=== PATIENT | male | born 1950 | race Caucasian/White ===

== ENCOUNTER 2016-11-23 00:14 | Observation (INO) ==
[2016-11-23 00:41] LABS: Basophils % 0.4 %; Eosinophils # 0.1 K/mcL (0.0-0.6); Eosinophils % 1.2 %; Hematocrit 42.2 % (37.5-50.1); Hemoglobin 14.3 g/dL (12.9-16.9); Immature Granulocytes % 0.2 % (0-4); Lymphocytes # 2.4 K/mcL (0.6-4.6); Lymphocytes % 23.8 %; Mean Corpuscular HGB Conc 33.9 g/dL (31.6-35.5); Mean Corpuscular Hemoglobin 29.6 pg (28.0-33.3); Mean Corpuscular Volume 87.4 fL (83.0-100.0); Mean Platelet Volume 10.6 fL (9.4-12.4); Monocytes # 1.2 K/mcL (0.0-1.3); Monocytes % 11.7 %; Neutrophils # 6.2 K/mcL (1.6-8.9); Platelet Count 191 K/mcL (140-400); Red Blood Count 4.83 M/mcL (4.19-5.50); Red Cell Distribution Width 13.2 % (11.5-14.5); Segmented Neutrophils % 62.7 %
[2016-11-23 00:49] LABS: INR 1.1; Prothrombin Time 11.4 Seconds (9.4-12.1)
[2016-11-23 00:54] LABS: BUN/Creatinine Ratio 17 (6-26); Blood Urea Nitrogen 24 mg/dL (8-26); Calcium 9.9 mg/dL (8.6-10.8); Carbon Dioxide 25 mEq/L (19-29); Chloride 107 mEq/L (98-109); Glucose 89 mg/dL (70-99); Osmolality,Calculated 296 (280-300); Potassium 4.1 mEq/L (3.5-4.5); Sodium 141 mEq/L (136-145); eGFR For African Americans > 60 (> 60); eGFR For Non-African Americans 50 (> 60)
--- NOTE | 2016-11-23 01:04 | Emergency Department Note ---
Disposition Clinical Impression: Chest pain Qualifiers: Chest pain type: unspecified Qualified Code(s): R07.9 - Chest pain, unspecified Headache Qualifiers: Headache type: unspecified Headache chronicity pattern: acute headache Intractability: not intractable Qualified Code(s): R51 - Headache Disposition: Admitted As Inpatient Condition: Fair Referrals: Felix Hinds MD [Primary Care Provider] - Forms: ED Satisfaction Letter Time of Disposition: 02:47 Chest Pain HPI - General Chief Complaint: ED Chest Pain Stated Complaint: CP Time Seen by Provider: 11/23/16 01:03 Source: patient Mode of arrival: ambulatory Limitations: no limitations Vital Signs Reviewed: Yes Nursing Notes Reviewed: Yes - History of Present Illness HPI Narrative: Patient presents to the ED with the chief complaint of chest pain. Patient has a history of hypertension, hyperlipidemia, and is otherwise healthy. Reports that he laid down to go to sleep and was woken up with a very intense pain in the left side of his chest. He is unable to describe the character of this pain, but states he has never felt any pain like this before. Nonradiating, associated with nausea but no vomiting. No diaphoresis. Also complained of a headache that started in the back of his head. States the symptoms came on about the same time. No changes in vision. No fever. No history of DVT or PE. Not on anticoagulation. The pain has been constant for the last hour. Severity scale (1-10): 4 - Related Data Allergies Allergy/AdvReac Type Severity Reaction Status Date / Time No Known Allergies Allergy Verified 11/23/16 00:20 All systems ED: reviewed and negative except as stated. Constitutional: Denies: fever Eyes: Denies: vision change ENT ED: Denies: throat pain, dysphagia Cardiovascular: Denies: palpitations, orthopnea, syncope Respiratory: Denies: cough, dyspnea Gastrointestinal: Reports: nausea. Denies: abdominal pain, vomiting Musculoskeletal: Denies: back pain, neck pain Integumentary: Denies: rash Neurological: Reports: headache. Denies: weakness, numbness, paresthesias, confusion, abnormal gait Endocrine: Denies: fatigue Chest Pain PMH - Past Medical History Medical history: Reports: hyperlipidemia, hypertension Psychiatric history: Reports: no psych history - Social History Smoking Status: Never smoker Alcohol use: Reports: none Drug use: Reports: none Physical Exam - General Limitations: no limitations General appearance: alert, other (appears to be in pain, positive Dalton sign) - Head Head exam: atraumatic, normocephalic, normal inspection - Eye Eye exam: Present: normal appearance, PERRL, EOMI - ENT ENT exam: normal exam, normal oropharynx, mucous membranes moist - Neck Neck exam: Present: normal inspection, full ROM, trachea midline - Chest Chest inspection: Present: normal inspection, symmetric chest wall rise - Respiratory Respiratory exam: Present: normal lung sounds bilaterally - Cardiovascular Cardiovascular exam: Present: regular rate, normal rhythm, normal heart sounds - Abdominal Exam Abdominal exam: Present: soft, Non-Tender. Absent: tenderness, distention, guarding, rebound, rigidity - Extremities Exam Extremities exam: Present: normal inspection, full ROM. Absent: tenderness, pedal edema - Neurological Exam Neurological exam: Present: alert, oriented X3 - Psychiatric Psychiatric exam: Present: normal affect, normal mood - Skin Skin exam: Present: warm, dry, intact, normal color Course Course Narrative: 65 year old male presenting with acute onset, constant, concerning but no h/o CAD. Workup initiated. - Reevaluation(s) Reevaluation #1: Patient's chest pain has almost resolved. However, he is still complaining of a headache. We will CT his head. Discussed admission. He is supposed to have a follow-up appointment with his primary care physician at 10 AM today and is not sure if he will want to be admitted. We will discuss after CT returns. Also of note, repeat EKG is improved. Shows sinus rhythm, rate 61, UT interval 177, QRS 93, QTC 390, left axis deviation, no acute ischemic changes. Time: 01:43 Reevaluation #2: Head CT is normal. Will admit to the hospitalist service for chest pain rule out. Time: 02:34 Reevaluation #3: Admitted to the hospitalist service Vital Signs Temperature 97.7 F 11/23/16 00:14 Pulse Rate 70 11/23/16 00:14 Respiratory Rate 20 11/23/16 00:14 Blood Pressure 175/100 11/23/16 00:14 O2 Sat by Pulse Oximetry 98 11/23/16 00:14 Temperature 97.7 F 11/23/16 00:14 Pulse Rate 62 11/23/16 01:21 Respiratory Rate 20 11/23/16 01:21 Blood Pressure 146/97 11/23/16 01:21 O2 Sat by Pulse Oximetry 96 11/23/16 01:21 Oxygen Delivery Oxygen Delivery Room Air Chest Pain - Medical Records Medical records reviewed: Yes I reviewed the patient's medical records. - Lab Data Lab results reviewed: Yes I reviewed the patient's lab results. Result diagrams: 11/23/16 00:36 11/23/16 00:36 Lab Results 11/23/16 11/23/16 11/23/16 Range/Units 00:36 00:36 00:36 WBC 10.0 (4.3-11.1) K/mcL RBC 4.83 (4.19-5.50) M/mcL Hgb 14.3 (12.9-16.9) g/dL Hct 42.2 (37.5-50.1) % MCV 87.4 (83.0-100.0) fL MCH 29.6 (28.0-33.3) pg MCHC 33.9 (31.6-35.5) g/dL RDW 13.2 (11.5-14.5) % Plt Count 191 (140-400) K/mcL MPV 10.6 (9.4-12.4) fL Immature Gran % 0.2 (0-4) % Seg Neutrophils % 62.7 % Lymphocytes % 23.8 % Monocytes % 11.7 % Eosinophils % 1.2 % Basophils % 0.4 % Neutrophils # 6.2 (1.6-8.9) K/mcL Lymphocytes # 2.4 (0.6-4.6) K/mcL Monocytes # 1.2 (0.0-1.3) K/mcL Eosinophils # 0.1 (0.0-0.6) K/mcL Basophils # 0.0 (0.0-0.2) K/mcL PT 11.4 (9.4-12.1) Seconds INR 1.1 APTT 28.0 (26.0-36.0) Seconds Sodium 141 (136-145) mEq/L Potassium 4.1 (3.5-4.5) mEq/L Chloride 107 (98-109) mEq/L Carbon Dioxide 25 (19-29) mEq/L BUN 24 (8-26) mg/dL Creatinine 1.43 H (0.72-1.25) mg/dL Est GFR ( Amer) > 60 (> 60) Est GFR (Non-Af Amer) 50 L (> 60) BUN/Creatinine Ratio 17 (6-26) Glucose 89 (70-99) mg/dL Calculated Osmolality 296 (280-300) Calcium 9.9 (8.6-10.8) mg/dL Troponin I (0-0.03) ng/mL 11/23/16 Range/Units 00:36 WBC (4.3-11.1) K/mcL RBC (4.19-5.50) M/mcL Hgb (12.9-16.9) g/dL Hct (37.5-50.1) % MCV (83.0-100.0) fL MCH (28.0-33.3) pg MCHC (31.6-35.5) g/dL RDW (11.5-14.5) % Plt Count (140-400) K/mcL MPV (9.4-12.4) fL Immature Gran % (0-4) % Seg Neutrophils % % Lymphocytes % % Monocytes % % Eosinophils % % Basophils % % Neutrophils # (1.6-8.9) K/mcL Lymphocytes # (0.6-4.6) K/mcL Monocytes # (0.0-1.3) K/mcL Eosinophils # (0.0-0.6) K/mcL Basophils # (0.0-0.2) K/mcL PT (9.4-12.1) Seconds INR APTT (26.0-36.0) Seconds Sodium (136-145) mEq/L Potassium (3.5-4.5) mEq/L Chloride (98-109) mEq/L Carbon Dioxide (19-29) mEq/L BUN (8-26) mg/dL Creatinine (0.72-1.25) mg/dL Est GFR ( Amer) (> 60) Est GFR (Non-Af Amer) (> 60) BUN/Creatinine Ratio (6-26) Glucose (70-99) mg/dL Calculated Osmolality (280-300) Calcium (8.6-10.8) mg/dL Troponin I 0.01 (0-0.03) ng/mL - Radiology Data Radiology results reviewed: Yes I reviewed the patient's radiology results. - EKG Data EKG attestation: Yes I reviewed and interpreted this EKG. EKG results narrative: Sinus rhythm, rate 70, UT interval 156, QRS 98, QTC 400, significant left axis deviation, supraventricular premature complexes, no acute ST segment changes S.B.A.R. - S.B.A.R. Situation: Demographics, MOA Background: Presenting Complaint, Relevant PMH, Meds, & Allergies Assessment: Vital Signs, Course and respsone to treatment, Exam Concerns, Patient/Family Expectation, Pertinant Lab Results, Outstanding Labs Recommendation: Recommendation based on pending studies, treatments, or consults S.B.A.R. Report Given to: Dr. Glen Wolf Repor Time: 02:46 Attestation Statement - Attestation Attestation: I, Mathieu Garcia MD, personally performed a history and physical exam of the patient and discussed their management with the resident. I reviewed the resident's note and agree with the documented findings, medical decision making , and plan of care. 65-year-old male presents to the emergency department with a complaint that he was awakened from sleep about 11:30 PM with severe left upper chest pain. Unable to describe the pain but states it was not a sharp pain. He states he has never experienced anything like this pain before. He rated the pain a 6 out of 10. The pain lasted at least an hour. There was no radiation of the pain. No shortness of breath. Some nausea but no vomiting. No diaphoresis. No history of any heart disease but he does have a history of hypertension and hyperlipidemia. He also complains of posterior headache at the same time as the chest pain. Chest pain is now mostly resolved but still complains of headache. No blurred vision or double vision. No difficulty with speech or swallowing or balance. No focal numbness tingling or weakness. He does state that his blood pressure at that time was much higher than usual. On examination patient is a well-developed well-nourished well-appearing elderly female in no acute distress. He is alert and oriented 3. There is no cyanosis or diaphoresis. Chest is nontender to palpation. Breath sounds are clear and equal bilaterally. Heart regular rate and rhythm. Abdomen soft and nontender with normal bowel sounds. No gross focal neurological deficits. EKG shows a normal sinus rhythm with PACs, no acute ischemic changes. Chest x- ray negative. Head CT negative. Labs reviewed and unremarkable. Troponin normal. The hospitalist, Dr. Carroll, was consulted and accepted admission of the patient.
[2016-11-23] MEDS ORDERED: Nitroglycerin 0.4 MG TAB.SUBL SL PRN (01:05)
[2016-11-23] MEDS ORDERED: Aspirin 81 MG TAB.CHEW PO ONE (01:05)
[2016-11-23] MEDS ORDERED: Ondansetron 4 MG/2 ML VIAL IVP PRN (03:12)
[2016-11-23] MEDS ORDERED: Naloxone 0.4 MG/ML INJ IVP PRN (03:12)
--- NOTE | 2016-11-23 04:02 | Internal Med History&Physical ---
Date of Encounter: 11/23/16 Time of Encounter: 03:45 Assessment and Plan (1) Chest pain Current visit: Yes Status: Acute patient with no prior history of CAD comes in with chest pain concerning for ACS , he has significant risk factors such as HTN, dyslipidemia and obesity, he has no prior stress test and this is his first presentation normal EKG and unremarkable troponin levels, we will cycle troponin, telemonitor NPO post midnight check lipid panel and A1c for risk stratification for discharge home should stress test be unremarkable, he is currently chest pain free, will do aspirin and lipitor Qualifiers: Chest pain type: intercostal pain Qualified Code(s): R07.82 - Intercostal pain (2) Headache Current visit: Yes Status: Acute may be tension related, his presenting headache today was occipital in location , his head CT was unremarkable, we ill do tylenol for now Qualifiers: Headache type: tension-type Headache chronicity pattern: acute headache Intractability: not intractable Qualified Code(s): G44.209 - Tension-type headache, unspecified, not intractable (3) HTN (hypertension) Current visit: Yes Status: Chronic hx of HTN, his home readings were optimal until a few hours prior, the elevation may have been pain related, we will continue home medication(he does not recall so his will check and bring the medication later) and monitor BP Qualifiers: Hypertension type: essential hypertension Qualified Code(s): I10 - Essential (primary) hypertension (4) Dyslipidemia Current visit: Yes Status: Chronic started on lipitor, will follow lipid panel in AM (5) JOANN (acute kidney injury) Current visit: Yes Status: Acute his baseline creatinine is unknown but he comes in with an abnormal creatinine, it is unclear if this is JOANN or CKD, in any case if his creatinine improves with his repeat BP then this is JOANN, Internal Medicine - H&P: HPI Chief complaint: Chest pain Admitted From: Emergency Dept Plans for Post Hospital Care: Home History of present illness: Mr. Mckenzie is a 65 year old male with a history of well controlled HTN/ Dyslipidemia not prescribed any medication comes to the ER with chest pain. He as in his usual state of health until this [place] whilst dozing off he was awoken with chest pain, the pain was located on the left side of the chest, was pressure like in character and dull, constant in timing, non radiating, was 6/ 10 in severity. It had no aggravating or relieving factors but was associated with severe occipital headache ad a feeling of apprehension. His chest pain had no associated shortness of breath, palpitations, nausea or vomiting, lightheadedness, or diaphoresis. His checked his BP at the time of his symptoms and his BP read 168/104, a knight departure from his baseline 135/85mmHg. He came to the ER for further evaluation. Of note patient is on one BP medication but unfortunately he does not recall the name, he reports compliance with this medication. 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) Current living situation: Home - Independent, With Family Activity Level: Independent ambulation Additional social history: he is with 3 children - Family History Father Living Status: Cause of : Leukemia Hx Family Cancer: Yes (Leukemia) Hx Family Medical Disorders: Yes (Hypotension) - Additional Family History Additional family history: both parents are , father had leukemia and mother had HTN Internal Medicine - H&P: Meds Allergies No Known Allergies Allergy (Verified 11/23/16 00:20) All Systems PM: A 10-system review of systems was performed and is negative for pertinent findings except as documented above in the HPI. - Constitutional Vitals: Temp Pulse Resp BP Pulse Ox 97.7 F 62 20 146/97 96 11/23/16 00:14 11/23/16 01:21 11/23/16 03:19 11/23/16 03:19 11/23/16 01:21 PHYSICAL EXAMINATION: GENERAL: Adult male, lying flat in bed with no sign of distress, Alert, HEENT: NC/AT, EOMI, PERRLA, anicteric sclera, normal conjunctiva, supple, clear nares, moist mucous membranes, clear oropharynx, central uvula RESP: no chest wall tenderness with palpation, lungs are clear to auscultation bilaterally, good AE bilaterally, No crackles or wheeze CARDIO: Normal hearts sounds; S1 and 2, RRR with no murmurs, no JVD, no ankle edema GI: Soft, full, no tenderness, no organomegaly felt, normal bowel sounds heard MUSCULOSKELETAL: grossly normal movements bilaterally, no deformities noted, no calf tenderness EXTREMITIES: No clubbing, cyanosis or edema, NEUROLOGIC: CN 2-12 intact grossly. No motor/sensory deficit appreciated, PSYCHIATRY: AAO x 3. Mood is fair, SKIN: no skin rash or ulcers noted Internal Med - H&P Results - Labs CBC & Chem 7: 11/23/16 00:36 11/23/16 00:36 - EKG Data -: EKG Interpreted by Myself EKG shows normal: sinus rhythm - EKG Data Prior EKG available for review: yes When compared to previous EKG: there are significant changes - Diagnostic Studies Chest x-ray Status: image reviewed by me CT scan - head Status: image reviewed by me
[2016-11-23] MEDS: Acetaminophen 325 MG TABLET PO PRN (04:50)
[2016-11-23 06:45] LABS: Hemoglobin A1C 5.2 %
[2016-11-23] MEDS ORDERED: Regadenoson 0.4 MG/5 ML SYRINGE IVP ONE (06:50)
[2016-11-23 06:52] LABS: Calcium 9.5 mg/dL (8.6-10.8); Chol/HDL Ratio 4.4 (0-4.9); Phosphorous 4.5 mg/dL (2.3-4.7); Potassium 4.1 mEq/L (3.5-4.5)
[2016-11-23] MEDS ORDERED: *HR* OxyCODONE/APAP 5/325 TABLET PO PRN ×3 (08:41→09:27)
--- NOTE | 2016-11-23 10:21 | Cardiology Consult Note ---
Date of Encounter: 11/23/16 Time of Encounter: 09:00 Assessment and Plan (1) NSTEMI (non-ST elevated myocardial infarction) Current Visit: Yes Status: Acute Per cardiology: -Patient with no known cardiac history. -Admitted after being awakened by left sided chest pain and headache. CP lessened in ER by nitroglycerin. -Intial troponin negative, subsequent troponin 0.13. Cardiac rehab consult order placed. -ECG unchanged, no ischemic changes noted on ECG. -Currently chest pain free. -Echo pending. -BP currently 110s sytolic. BP hypertensive on admission. -Not on beta max due to bradycardia. ON asa and statin. -Of note, patient had negative standard stress test August 2014. -Discussed with and recommendations for LHC were given. Discussed at length with patient and family regarding LHC risk and benefits. Patient and family reluctant for LHC. Pateint and family questioning possible transfer to outside facility. Updated family that they have the right to transfer. I spent greater than 30 minutes with patient and family. At the end of conversation, patient and family agreeable to stay at [facility] and to have third serial troponin drawn. Patient and family also agreeable for echocardiogram. Patient and family state they will make further decisions pending echo and third troponin. -Further recommendations pending echo and third troponin and after discussion with patient and family. (LISS) (2) Chest pain Current Visit: Yes Status: Acute Per cardiology: -Chest pain that awoke patient from sleep. -CP relieved with nitro, -Denies fatigue or shortness of breath. -Denies excertional chest pain, however reports excertional headaches for the past 6 months. Could be anginal equivelant. -Currently chest pain free. -Troponin 0.01, 0.13. -ECG with no ischemic changes. -Further recommendations pending echo and third troponin. (LISS) (3) CKD (chronic kidney disease) Current Visit: Yes Status: Chronic Per cardiology: -Patient denies history of CKD. -Upon review of previous labs since 2002, creatinines noted to be 1.2-1.4. -Current creatinine 1.46, at baseline. -Management per primary service. -Can consider nephrology consult. (LISS) Qualifiers: Chronic kidney disease stage: stage 3 (moderate) Qualified Code(s): N18.3 - Chronic kidney disease, stage 3 (moderate) (4) Headache Current Visit: Yes Status: Acute Per cardiology: -Admits to excertional headaches for the past 6 months. -CT head negative for age. -Could possibly be anginal equivalent. -Management per primary service. (LISS) Qualifiers: Headache type: tension-type Headache chronicity pattern: acute headache Intractability: not intractable Qualified Code(s): G44.209 - Tension-type headache, unspecified, not intractable (5) HTN (hypertension) Current Visit: Yes Status: Chronic Per cardiology: -Known history of hypertension. -States was on BB, but was stopped by PCP for bradycardia. States was placed on CCB for hypertenion by PCP. -HYpertensive on admission with BP 175/100. -BPs currently controlled. -Will continue to monitor. (LISS) Qualifiers: Hypertension type: essential hypertension Qualified Code(s): I10 - Essential (primary) hypertension (6) Dyslipidemia Current Visit: Yes Status: Chronic Per cardiology: -Patient reports known history of hyperlipidemia. -Not taking any statins at home. -Cholesterol noted to be 219, LDL 143. -Started on lipitor 80mg po daily. -Will check LFTs. (LISS) Discussion w patient/family: The assessment and plan as outlined above was discussed with the patient and/or family members who expressed understanding and agreement. All questions were answered. Thank you for involving us in the care of your patient. Please call with any questions. Patient seen and examined with KATERIN Huddleston Patient discussed and reviewed with . History of Present Illness Consult date: 11/23/16 Requesting physician: Masoud Lee Consult reason: NSTEMI Chief complaint: Chest pain History of present illness: Mr. Mckeznie is a 65 year old male with a relevant past medical history of hypertension, hyperlipidemia. Patient states last night he was awoken by left sided chest pain and headache. Patient denies radiation of chest pain. Patient states chest pain was sharp and constant. Patient came to the ER and was given nitro. Patient states pain was lessened with nitro. CT head was performed for headache and was negative. Patient was admitted for further evaluation. Initial troponin was negative, however subsequent troponin was elevated. BP hypertensive on admission. Patient denies current chest pain or headache. Patient states over the last six months he has been getting headaches with excertional activities. Patient denies chest pain with excertion. Patient denies shortness of breath or increased fatigue. (LISS) Past Med Surg Social Fam HX - Past Medical History Attestation: Yes The following information was validated with the patient. Source: patient, old records reviewed, obtained from family Medical history: hyperlipidemia, hypertension Psychiatric history: no psych history - Past Surgical History Surgical History: arthroscopy (bilateral knee) - Social History Smoking Status: Never smoker Smokeless Tobacco Status: No Alcohol use: none Drug use: none - Family History Father Living Status: Cause of : Leukemia Hx Family Cancer: Yes (Leukemia) Hx Family Medical Disorders: Yes (Hypotension) Medications and Allergies Diltiazem SR (12hr) [Cardizem SR] 90 mg PO DAILY 11/23/16 [History] Gabapentin [Neurontin] 600 mg PO TID PRN 11/23/16 [History] Meloxicam [Mobic] 15 mg PO DAILY PRN 11/23/16 [History] Allergies No Known Allergies Allergy (Verified 11/23/16 00:20) All Systems Review: A 10-system review of systems was performed and is negative for pertinent findings except as documented above in the HPI. - Constitutional Constitutional: headache(s) - Cardiovascular Cardiovascular: as per HPI, chest pain at rest Physical Examination Vital Signs, Last 4 Hours Temp Pulse Resp BP Pulse Ox 11/23/16 06:39 97.5 F L 55 16 115/66 97 General: Conversant, No Apparent Distress HEENT: Atraumatic, Normocephaly, Mucus Membranes Moist Neck: No JVD, Normal carotid pulses Cardiac: Reg Rate and Rhythm, Normal S1 and S2, No Murmur Lungs: Normal Breath Sounds, No Wheeze, Rales, Rhonchi Neuro: Alert and responsive, No focal deficits noted Abdomen: Soft, Non-Tender Skin: No rashes noted on visualized skin Musculoskeletal: No Chest Wall Tenderness Extremities: No Clubbing, No Cyanosis, No Edema, Normal Pulses Results 11/23/16 00:36 11/23/16 06:13 Lab Results Impressions Chest X-Ray 11/23/16 00:21 IMPRESSION: No acute process. D/ / Lc Norris MD / Lc Norris MD Interpreting Provider: Lc Norris MD Head CT 11/23/16 01:42 IMPRESSION: No acute intracranial abnormality ; normal CT head for age. D/ / Amari Musa MD / Amari Musa MD Interpreting Provider: Amari Musa MD Active Medications Acetaminophen (Tylenol) 650 mg PO Q6HR PRN PRN Reason: Mild Pain Stop: 05/25/17 04:37 Last Admin: 11/23/16 04:50 Dose: 650 mg Aspirin (Aspirin) 81 mg PO DAILY FELICITY Stop: 05/26/17 09:01 Atorvastatin Calcium (Lipitor) 80 mg PO HS FELICITY Stop: 05/25/17 21:01 Naloxone HCl (Narcan) 0.4 mg IVP Q2MIN PRN PRN Reason: Opioid Reversal Stop: 05/25/17 03:13 Nitroglycerin (Nitroglycerin) 0.4 mg SL Q5MIN PRN PRN Reason: Chest Pain Stop: 05/25/17 01:06 Last Admin: 11/23/16 01:18 Dose: 0.4 mg Ondansetron HCl (Zofran) 4 mg IVP Q6HR PRN PRN Reason: Nausea And Vomiting Stop: 05/25/17 03:13 Oxycodone/Acetaminophen (Percocet 5/325) 1 each PO Q6HR PRN PRN Reason: Pain Stop: 05/25/17 08:42 Laboratory Tests 07/30/14 11/23/16 11/23/16 13:10 00:36 00:36 Hgb 14.3 Creatinine 1.30 H 1.43 H Troponin I Triglycerides Cholesterol LDL Cholesterol, Calc HDL Cholesterol 11/23/16 11/23/16 11/23/16 00:36 06:13 06:13 Hgb Creatinine 1.46 H Troponin I 0.01 0.13 H* Triglycerides 129 Cholesterol 219 H LDL Cholesterol, Calc 143 H HDL Cholesterol 50 - Imaging and Cardiology Chest Xray: report reviewed Echo: pending Other Results: CT head reviewed - EKG Interpretation EKG results cardiology: personally reviewed (ECG reviewed with SR.), other ( Telemetry reviewed with average HR 55, sinus bradycardia. PACs noted.) Consult Discharge Plan - Plan Referrals: Marlene Arita MD [Partnered Physician] - 12/01/16 1:30 pm
[2016-11-23] MEDS ORDERED: Verapamil 5 MG/2 ML VIAL ONE (10:34)
[2016-11-23] MEDS ORDERED: *HR* FentaNYL (PF) 100 MCG/2 ML VIAL ONE (10:34)
[2016-11-23] MEDS ORDERED: *HR* Midazolam HCl 2 MG/2 ML VIAL ONE ×2 (10:34→14:47)
[2016-11-23] MEDS ORDERED: 0.9 % Sodium Chloride 2,000 ML ONE (10:35)
[2016-11-23] MEDS ORDERED: Nitroglycerin 1,000 MCG/10 ML VIAL IV ONE (10:35)
[2016-11-23] MEDS ORDERED: Heparin 1,000 UNITS/500 mL NS 500 ML ONE (10:35)
[2016-11-23] MEDS ORDERED: *HR* Heparin 10,000 UNIT/10 ML VIAL ONE (10:35)
--- NOTE | 2016-11-23 10:47 | Pre-Sedation Evaluation ---
Pre-sedation evaluation - Pre-sedation checklist Date of procedure: 11/23/16 Procedure: [facility] Recent Vitals: Last Vital Signs Temp 97.5 F L 11/23/16 06:39 Pulse 55 11/23/16 06:39 Resp 16 11/23/16 06:39 BP 115/66 11/23/16 06:39 Pulse Ox 97 11/23/16 06:39 H&P (including ROS) documented in medical record: Yes Previous reaction to sedatives/anesthetics: No Dietary Status: NPO after Midnight Airway Assessment: Patient can open mouth completely, TMJ function normal ASA Classification *see protocol: CLASS II-Mild systemic disease Plan of Care: Pt appropriate candidate for procedure/moderate/conscious sedation , Risks/benefits of procedure/sedation discussed w/ patient/family
--- NOTE | 2016-11-23 12:22 | Electrocardiograph Report ---
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
--- NOTE | 2016-11-23 12:23 | Electrocardiograph Report ---
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
--- NOTE | 2016-11-23 12:47 | ECHO - Doppler Report ---
Echocardiogram Name: Gray Mckenzie Date of Study: 11/23/2016 Date: 1950 Ht: 73.0 in Medical Record#: [id number] Age: 65 Wt: 228.0 lb Gender: Male BSA: 2.28 Order #: [id number] Location: [facility] Room #: 3B54 Reading Physician: Federico Werner MD, [facility] Software Development Advisor: Char Kelley RDCS, RVT Ordering Physician: Tim Garza MANAGER OF RADIOLOGY Primary Physician: Felix Hinds MD Indications: Elevated Troponins Impressions: Normal LV systolic function, LVEF 55-60%. Mild left ventricular diastolic dysfunction. Normal right ventricular size and function. No significant valvular dysfunction. No evidence of pulmonary hypertension. The ascending aorta is borderline dilated, measuring 4.2 cm in diameter. Left Ventricular Wall Motion: Rest Echo Findings All wall segments showed normal motion. Findings: Study Quality * Technically adequate exam. ECG Findings * Sinus bradycardia. Left Ventricle * Normal LV systolic function, LVEF 55-60%. * Normal LV chamber size and wall thickness. * Mild left ventricular diastolic dysfunction. Right Ventricle * Normal right ventricular size and function. Left Atrium * Normal left atrial size. Right Atrium * Normal right atrial size. Aorta * The ascending aorta is borderline dilated, measuring 4.2 cm in diameter. * Normally sized aortic root. Pericardium * There is no pericardial effusion present. IVC * The IVC is not dilated. Aortic Valve * Trileaflet aortic valve. * Mildly sclerotic aortic valve leaflets. * No aortic stenosis. * Trace aortic regurgitation. Mitral Valve * Normal mitral valve structure. * No mitral stenosis. * Trace mitral regurgitation. Tricuspid Valve * Normal tricuspid valve structure. * No tricuspid stenosis. * Trace tricuspid regurgitation. * No evidence of pulmonary hypertension. Pulmonic Valve * Pulmonic valve not well visualized. * No pulmonic stenosis. * No pulmonic regurgitation. History Hypertension Hypercholesteremia Measurements: BP: 115/ 66 2D Normal Values RVIDd: 3.60 cm IVSd: 1.00 cm 0.6 - 1.0 cm LVIDd: 5.00 cm 3.7 - 5.6 cm LVPWd: .90 cm 0.6 - 1.1 cm LVIDs: 3.50 cm 1.5 - 3.6 cm AO: 4.20 cm < 4.0 cm %FS: 30.00 cm >25 % LA volume: 64 Mitral Valve Peak E:.51 m/sec Peak A:.73 m/sec E/A Ratio:0.7 Tricuspid Valve TV Regurg Peak Grad: 20.00mmHg TV Regurg Peak Zain: 2.22m/sec Updated by Federico Werner MD, [facility] on 11/23/2016 12:41:52 PM electronically signed on 11/23/2016 12:42:20 PM with status of Final Wall Motion Kim: 1=Normal, 2=Hypokinesis, 3=Akinesis, 4=Dyskinesis, 5=Aneurysmal, 6=Hyperkinetic, X=Not Visualized (Blank)=Missing
--- NOTE | 2016-11-23 14:30 | Event Note ---
Date of Encounter: 11/23/16 Time of Encounter: 13:30 - Cardiology Event Note -Third troponin resulted at 0.37. Patient and family updated on elevation of troponin level. Patient and family agreeable for [facility] at this time. Risk and benefits explained to patient and family. Patient and family state understanding and agree with plan. -Echocardiogram with LVEF 55-60%, mild left ventricular diastolic dysfunction, no significant valvular dysfunction, no evidence of pulmonary hypertension, ascending aorta is borderline dilated, measuring 4.2cm in diameter, all wall segments with normal motion. Discussed and reviewed echo results with patient and family. Discussed possible need for CT scan as outpatient to evaluate possible ascending aorta dilation. Patient and family state understanding and agree with plan. (LISS) Patient seen and examined with KATERIN Huddleston.
[2016-11-23] MEDS ORDERED: Tirofiban 12.5 MG/250ML 12.5 MG/250 ML BAG ONE (15:10)
[2016-11-23] MEDS ORDERED: *HR* Ticagrelor 90 MG TABLET ONE (15:18)
[2016-11-23] MEDS ORDERED: Tirofiban 12.5 MG/250ML 12.5 MG/250 ML BAG IVC SCH (15:30)
--- NOTE | 2016-11-23 15:47 | Invasive Diagnostic Lab Proc ---
Name: Gray Mckenzie Date of Study: 11/23/2016 Date: 1950 Ht: 72.8in Medical Record#: [id number] Age: 65 Wt: 227.08lb Gender: Male BSA: 2.27 Order #: [id number] BMI: 30.09 Physicians Procedure Physician: Kota Marlow MD, [facility] Referring MD: Felix Hinds MD Referring MD: Staff Name Position Time In Yee Daniels RN Monitor 02:35 PM Marla Singh RT (R) Scrub 02:35 PM Brooke Clark RN Financial Coordinator 02:35 PM Song Gaffney RN Nurse 03:15 PM Indications Indication Non-Stemi Procedures Performed Procedure L HRT ARTERY/VENTRICLE ANGIO PRQ CARD MAURI STENT W/ANGIO 1 VSL Pre-Procedure Checklist Pt not NPO for procedure and MD aware. Blood Pressure: 166/95 Rhythm: NSR Plan of Care Patient will tolerate the procedure without complications. Adequate level of comfort will be maintained. Hemodynamics will remain stable Patient will recover from procedure without complications. Respiratory function will be maintained. Cardiac rhythm will remain stable. Patient temperature will be maintained. Patient and/or family have verbalized understanding of the procedure. Patient Education Intravenous Access Time IV Size Location DC'd Fluid/Drip Rate Units RN 01:57 PM 20g 1 08/16" Patent On Arrival Rt Antecubital 0.9NaCl 25 ml/hr Brooke Clark RN Allergies No Known Allergies Vital Signs Time BP (mmHg) HR (bpm) O2 Sat. RR (bpm) LOC 02:47 PM / % 5 = Fully awake and oriented or at pre-proc level 02:47 PM / % 5 = Fully awake and oriented or at pre-proc level 03:02 PM / % 5 = Fully awake and oriented or at pre-proc level 02:41 PM 167 / 101 64 99 % 02:45 PM 166 / 95 64 97 % 22 02:50 PM 145 / 85 60 93 % 17 02:52 PM 139 / 86 60 96 % 21 02:55 PM 134 / 78 67 96 % 17 03:00 PM 136 / 84 65 97 % 20 03:05 PM 135 / 82 58 97 % 14 03:10 PM 131 / 85 60 98 % 17 03:15 PM 133 / 81 56 97 % 20 03:20 PM 133 / 89 120 98 % 16 Procedural Medications Time Medication Dose Units Method Given By 02:38 PM Oxygen 2 L/min nasal cannula Brooke Clark RN 02:41 PM Versed 2 mg Intravenous EduardoBrooke dhaliwal RN 02:42 PM Fentanyl 50 mcg Intravenous Brooke Clark RN 02:48 PM Versed 1 mg Intravenous Brooke Clark RN 02:53 PM Lidocaine 2% 0.5 ml Subcutaneous Kota Marlow MD, FAC 02:54 PM Heparin 4000 units Nitroglycerin 200 mcg Verapamil 2.5 mg Intraarterial Kota Marlow MD, FAC 03:07 PM Heparin 3000 units Intravenous Brooke Clark RN 03:10 PM Aggrastat Bolus: 50 ml Intravenous Brooke Clark RN 03:10 PM Aggrastat 12.5mg/250ml 18 ml Intravenous Brooke Clark RN ASA Classification: CLASS II- Mild systemic disease (i.e. well-controlled diabetes, hypertension, asthma, cigarette smoking) Melany Score Preprocedure Postprocedure Activity 2- Moves 4 extremities sustained head lift Activity 2- Moves 4 extremities sustained head lift Circulation 2- SBP +/= 20 points of pre-anesthetic level Circulation 2- SBP +/= 20 points of pre-anesthetic level Consciousness 2- Awake and alert oriented x 3 Consciousness 2- Awake and alert oriented x 3 O2 Saturation 2- Able to maintain O2 satruation of 92% on room air O2 Saturation 2- Able to maintain O2 satruation of 92% on room air Respiratory 2- Able to deep breathe and cough well Respiratory 2- Able to deep breathe and cough well Total Score 10 Total Score 10 Contrast Agent: Isovue Diagnostic Contrast: 50 ml Total Contrast: 50 ml Fluoro Dose: 427 mGy Activated Clotting Time Time Seconds to Clot 03:07 PM 208 Procedure Log Time Note Enter By 10:47 AM CathStat 02:02 PM 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 ejohnson 02:35 PM Procedure start 14:35 ejohnson 02:35 PM Yee Daniels RN Position: Monitor Time in: 14:35 ejohnson 02:35 PM Marla Singh RT (R) Position: Scrub Time in: 14:35 ejohnson 02:35 PM Brooke Clark RN Position: Financial Coordinator Time in: 14:35 ejohnson 02:35 PM Patient charges- Angio tray pack, Navilyst 3mm J, Pulse Oximetry and ACIST tubing and transducer ejohnson 02:35 PM Case Delayed No ejohnson 02:39 PM Time: 14:38 Oxygen on at 2 L/min per nasal cannula by Brooke Clark RN ejohnson 02:40 PM Vitals capture started with the following parameters, Patient=Adult, Interval=5 min, Initial Cmqfyfsm=011 mmHg, Deflation Rate=5 mmHg, Cuff placed on Left Arm 02:41 PM HR=64 bpm, GABN=658/101 mmhg, SpO2=99.0 % 02:41 PM Recorded ECG: HR=63 Condition=Condition 1 02:42 PM Time: 14:41 Versed 2 mg Intravenous Given by Brooke Clark RN ejohnslexy 02:42 PM Time: 14:42 Fentanyl 50 mcg Intravenous Given by Brooke Clark RN ejohnson 02:42 PM Family updated that procedure was beginning ejohnson 02:45 PM Recorded ECG: HR=72 Condition=Condition 1 02:45 PM HR=64 bpm, ZWIT=771/95 mmhg, SpO2=97 %, Resp=22 B/min 02:47 PM Time: 14:47 Patient comfortable and pain free: Yes ejohnson 02:47 PM Time: 14:47LOC: 5 = Fully awake and oriented or at pre-proc level ejohnson 02:48 PM Time: 14:48 Versed 1 mg Intravenous Given by Brooke Clark RN ejohnson 02:49 PM Pressure channel 1 zeroed. 02:50 PM HR=60 bpm, PMVR=810/85 mmhg, SpO2=93.0 %, Resp=17 B/min, Comment=SR 02:52 PM NIBP STAT measurement started. 02:52 PM HR=60 bpm, NMNT=869/86 mmhg, SpO2=96.0 %, Resp=21 B/min, Comment=SR 02:52 PM Time out performed according to hospital policy ejohnson 02:53 PM Time: 14:53 0.5 ml Lidocaine 2% to right radial Subcutaneous Given by Kota Marlow MD, [facility] ejohnson 02:54 PM Access obtained by percutaneous puncture. 5Fr 10cm Terumo [place] sheath placed in right Radial artery. [id number] ejohnson 02:54 PM Time: 14:54 Patient given 4,000 units Heparin, 200 mcg Nitroglycerin, and 2.5 mg Verapamil Intraarterial by Kota Marlow MD, FACC ejohnson 02:54 PM 5Fr FR 4 catheter inserted over the wire DNC ejohnson 02:55 PM HR=67 bpm, ERZE=291/78 mmhg, SpO2=96.0 %, Resp=17 B/min, Comment=SR 02:56 PM Catheter removed ejohnson 02:56 PM 5Fr FL 3.5 catheter inserted over the wire DNC ejohnson 02:57 PM Recorded Pressure: Ao, HR=63, Condition=Condition 1 (Aorta) Ao 104/78/91 02:58 PM LCA angiography performed in multiple views. ejohnson 02:58 PM Catheter removed ejohnson 02:59 PM 5Fr AR1 catheter inserted over the wire [id number] ejohnson 03:00 PM Lesion found in Proximal LAD. Pre Stenosis: 40 Pre JOSE A Flow: 3: Complete and Brisk Flow/Perfusion ejohnson 03:00 PM Lesion found in Distal LAD. Pre Stenosis: 99 Pre JOSE A Flow: 3 ejohnson 03:00 PM Proximal Left Anterior Descending Coronary Artery with 40% stenosis. ejohnson 03:00 PM HR=65 bpm, QGYP=884/84 mmhg, SpO2=97.0 %, Resp=20 B/min, Comment=SR 03:00 PM Recorded Pressure: Ao, HR=66, Condition=Condition 1 (Aorta) Ao 103/80/92 03:01 PM Mid/Distal Left Anterior Descending Coronary Artery and diagonal branches with 99% stenosis. ejohnson 03:02 PM Lesion found in 1st Marginal. Pre Stenosis: 60 Pre JOSE A Flow: 3: Complete and Brisk Flow/Perfusion ejohnson 03:02 PM Lesion found in Proximal Circumflex. Pre Stenosis: 40 Pre JOSE A Flow: 3: Complete and Brisk Flow/Perfusion ejohnson 03:02 PM Time: 14:47 Patient comfortable and pain free: Yes ejohnson 03:02 PM Time: 14:47LOC: 5 = Fully awake and oriented or at pre-proc level ejohnson 03:02 PM Catheter removed ejohnson 03:02 PM 5Fr Pigtail catheter inserted over the wire DN ejohnson 03:03 PM Circumflex, Obtuse Marginal, Left Posterior Descending, and Left Posterolateral Coronary Arteries with 60 % stenosis. ejohnson 03:03 PM Lesion found in Proximal RCA. Pre Stenosis: 85 Pre JOSE A Flow: 3: Complete and Brisk Flow/Perfusion ejohnson 03:03 PM Catheter selectively placed in left ventricle ejohnson 03:03 PM Pressure channel 1 zeroed. 03:04 PM Recorded Pressure: LV, HR=68, Condition=Condition 1 (Left Ventricle) LV 119/8/15 03:04 PM Right Coronary, Right Posterior Descending Arteries with Right Posterolateral and Acute Marginal branches with 85 % stenosis. ejohnson 03:05 PM Lesion found in LMCA. Pre Stenosis: 20 Pre JOSE A Flow: 3: Complete and Brisk Flow/Perfusion ejohnson 03:05 PM HR=58 bpm, VNOJ=589/82 mmhg, SpO2=97.0 %, Resp=14 B/min, Comment=SR 03:05 PM Catheter removed ejohnson 03:06 PM 6Fr AR1 Runway guide catheter was used to cannulate the PCI vessel successfully. reused? No ejohnson 03:06 PM Inflation device was opened. ejohnson 03:07 PM Recorded Pressure: Ao, HR=61, Condition=Condition 1 (Aorta) Ao 133/89/109 03:07 PM At 15:07 the ACT was 208 seconds. ejohnson 03:07 PM Time: 15:07 Heparin 3000 units Intravenous Given by Brooke Clark RN ejohnson 03:08 PM .014 PT Graphix 180cm guide wire across target lesion- successful. reused? No ejohnson 03:09 PM 3.0 mm x 12 mm Emerge Monorail balloon across target lesion- successful. reused? No ejohnson 03:10 PM Balloon inflated @ 14 ajay for 22 seconds ejohnson 03:10 PM HR=60 bpm, EYIF=516/85 mmhg, SpO2=98.0 %, Resp=17 B/min, Comment=SR 03:10 PM Time: 15:10 Aggrastat Bolus: 50 ml Intravenous Given by [place], Brooke RN Lennon pump ejohnson 03:11 PM Time: 15:10 Aggrastat 12.5mg/250ml 18 ml Intravenous Given by Brooke Clark RN Lennon pump ejohnson 03:11 PM Balloon catheter removed intact. ejohnson 03:11 PM 4.0mm x 16mm Synergy drug-eluting stent across target lesion- successful Lot #[id number] ejohnson 03:13 PM Stent deployed @ 16 jaay for 20 seconds ejohnson 03:14 PM Stent delivery system removed intact. ejohnson 03:15 PM 4.0 mm x 12mm NC Emerge balloon across target lesion- successful. reused? No ejohnson 03:15 PM HR=56 bpm, EIHW=859/81 mmhg, SpO2=97.0 %, Resp=20 B/min, Comment=SR 03:16 PM Balloon inflated @ 20 ajay for 11 seconds ejohnson 03:16 PM Balloon inflated @ 20 ajay for 9 seconds ejohnson 03:17 PM Balloon catheter removed intact. ejohnson 03:17 PM Time: 15:02 Patient comfortable and pain free: Yes ejohnson 03:17 PM Time: 15:02LOC: 5 = Fully awake and oriented or at pre-proc level ejohnson 03:18 PM Guide wire removed intact. ejohnson 03:18 PM Guide catheter removed intact. ejohnson 03:19 PM Procedure completed at 15:19 ejohnson 03:19 PM Sign out completed: Radiation Dose 427 mGy Fluoro Time: 5.6 Isovue 370 - 200ml contrast 50 ml given by Kota Marlow MD, FACC. Complications: NoneCardiac Rehab Consult needed: YesConfirmed administered medications: Yes ejohnson 03:19 PM Isovue 370 - 200ml,1 Bottle(s) used. ejohnson 03:19 PM Arterial sheath pulled, Vasc Band closure device used and was Successful S/N. ejohnson 03:20 PM 9 ml air in Vasc Band. ejohnson 03:20 PM Post ECG Sinus Bradycardia ejohnson 03:20 PM Post Blood Pressure 133/81 ejohnson 03:20 PM 15:20 Post Pulses Rt Radial 1+ ejohnson 03:20 PM Information taught Cardiac Cath, PCI, and Vasc Band ejohnson 03:20 PM CJ=657 bpm, SMWD=662/89 mmhg, SpO2=98.0 %, Resp=16 B/min, Comment=SR 03:20 PM Education needs Plan of Care and Responsibilities of Patient in Care ejohnson 03:20 PM Learning barriers :None ejohnson 03:20 PM Education Methods Verbal ejohnson 03:20 PM Education evaluation Able to repeat information ejohnson 03:20 PM Site status No bleeding/hematoma - Rt Wrist as reported by Marla Singh RT (R) at 15:20 ejohnson 03:21 PM Plavix, Effient or Brilinta given Yes ejohnson 03:21 PM Family placed in consult room. ejohnson 03:22 PM Coronary Dominance: right ejohnson 03:22 PM Lesion found in Right PDA. Pre Stenosis: 15 Pre JOSE A Flow: 3: Complete and Brisk Flow/Perfusion ejohnson 03:27 PM Report given to Blade BOJORQUEZ Pt taken to 3A Room #54. 15:27 ejohnson 03:32 PM Time: 15:17 Patient comfortable and pain free: Yes ejohnson 03:36 PM Patient out of room: 15:36 ejohnson Complications Complication None Hemodynamics Pressures Site Systolic/A Wave Diastolic/V Wave Mean AO 104 78 91 AO 103 80 92 LV 119 8 15 AO 133 89 109 LV 119 8 15 Post Procedure Information Blood Pressure: 133/81 mmHg Rhythm: Sinus Bradycardia Post procedural instructions were given Closure Device Time Device Success/Fail 11/23/2016 3:19:00 PM Mechanical Compression Successful Site Checks Time Location Status Staff Sheath In? Note 03:20 PM Rt Wrist No bleeding/hematoma Marla Singh RT (R) Pulses Time Site Pre-Procedure Post-Procedure Note 11/23/2016 2:13:00 PM Bilateral DP 1+ 11/23/2016 2:14:00 PM Bilateral PT 2+ 3:20:00 PM Rt Radial 1+ Updated by Yee Daniels RN on 11/23/2016 3:41:01 PM Yee Daniels RN electronically signed on 11/23/2016 3:41:27 PM with status of Final
--- NOTE | 2016-11-23 20:02 | Internal Med Progress Note ---
Date of Encounter: 11/23/16 Time of Encounter: 10:00 - Assessment and plan (1) Headache Current Visit: Yes Status: Acute Assessment and plan: We will give symptomatic treatment Qualifiers: Headache type: tension-type Headache chronicity pattern: acute headache Intractability: not intractable Qualified Code(s): G44.209 - Tension-type headache, unspecified, not intractable (2) HTN (hypertension) Current Visit: Yes Status: Chronic Assessment and plan: Continue home medications Qualifiers: Hypertension type: essential hypertension Qualified Code(s): I10 - Essential (primary) hypertension (3) Dyslipidemia Current Visit: Yes Status: Chronic Assessment and plan: Place patient on high intensity statin therapy. (4) NSTEMI (non-ST elevated myocardial infarction) Current Visit: Yes Status: Acute Assessment and plan: Cardiology consultation appreciated. The patient had catheterization this afternoon (5) CKD (chronic kidney disease) Current Visit: Yes Status: Chronic Assessment and plan: Continue closely monitor renal function. Low rate IVF tonight. Qualifiers: Chronic kidney disease stage: stage 3 (moderate) Qualified Code(s): N18.3 - Chronic kidney disease, stage 3 (moderate) - Time Spent With Patient 25 - 35 minutes - Subjective Interval history: Patient is a 65-year-old male admitted for chest pain. Past medical history is significant for hypertension and hyperlipidemia. Patient was seen and examined. His chest pain has improved with the last saw him. Complaining of headache. Vitals are stable. Patient had elevated troponin with onset of chest pain, consider NSTEMI, cardio consult was called and the patient has catheterization in the afternoon. - Constitutional Vitals: Temp Pulse Resp BP Pulse Ox 97.5 F L 72 15 138/90 96 11/23/16 19:10 11/23/16 19:10 11/23/16 19:10 11/23/16 19:10 11/23/16 19:10 General appearance: Present: mild distress, A&O X 3, answers questions appropriately - Head Head exam: Present: atraumatic, normocephalic - Eye Eye exam: Present: PERRL, conjuntiva pink, sclera anicteric Pupils: Present: PERRL - Neck Neck exam general surgery: Present: supple, trachea midline. Absent: lymphadenopathy - Respiratory Respiratory exam: Present: CTAB. Absent: accessory muscle use, rales, rhonchi, wheezes - Cardiovascular Cardiovascular exam: Present: RRR, +S1, +S2. Absent: diastolic murmur, gallop, rubs, systolic murmur - GI/Abdominal GI/Abdominal exam: Present: normal bowel sounds, soft, no peritoneal signs. Absent: distended, tenderness - Extremities Exam Extremities exam: Present: warm, radial pulses palpable and symetrical. Absent : calf tenderness, cyanotic, pedal edema - Neurological Exam Neurological exam: Present: CN II-XII intact, oriented X3, no focal deficits. Absent: pronater drift, facial droop, speech deficit - Skin Skin exam: Present: dry, intact Internal Medicine: Result - Labs CBC & Chem 7: 11/23/16 00:36 11/23/16 06:13 Labs: BMP 11/23/16 06:13 Sodium 138 Potassium 4.1 Chloride 107 Carbon Dioxide 20 BUN 25 Creatinine 1.46 H Glucose 93 Calcium 9.5 Cardiac Enzymes 11/23/16 11/23/16 Range/Units 06:13 12:05 Troponin I 0.13 H* 0.37 H* (0-0.03) ng/mL - ABG Interpretation ABG results: PT/INR, D-dimer PT 11.4 Seconds (9.4-12.1) 11/23/16 00:36 Consult Discharge Plan - Plan Referrals: Marlene Arita MD [Partnered Physician] - 12/01/16 1:30 pm
[2016-11-23] MEDS ORDERED: 0.9 % Sodium Chloride 1,000 ML IVC SCH (20:15)
[2016-11-23] MEDS: *HR* Ticagrelor 90 MG TABLET PO SCH (20:38)
[2016-11-24 05:49] LABS: Basophils % 0.4 %; Eosinophils # 0.2 K/mcL (0.0-0.6); Eosinophils % 2.8 %; Hemoglobin 13.1 g/dL (12.9-16.9); Immature Granulocytes % 0.4 % (0-4); Lymphocytes # 1.9 K/mcL (0.6-4.6); Lymphocytes % 23.7 %; Mean Corpuscular HGB Conc 34.5 g/dL (31.6-35.5); Mean Corpuscular Hemoglobin 30.2 pg (28.0-33.3); Mean Corpuscular Volume 87.6 fL (83.0-100.0); Mean Platelet Volume 11.2 fL (9.4-12.4); Monocytes # 0.8 K/mcL (0.0-1.3); Monocytes % 9.2 %; Neutrophils # 5.2 K/mcL (1.6-8.9); Platelet Count 173 K/mcL (140-400); Red Blood Count 4.34 M/mcL (4.19-5.50); Red Cell Distribution Width 13.2 % (11.5-14.5); Segmented Neutrophils % 63.5 %
[2016-11-24 06:03] LABS: BUN/Creatinine Ratio 16 (6-26); Blood Urea Nitrogen 20 mg/dL (8-26); Carbon Dioxide 25 mEq/L (19-29); Chloride 105 mEq/L (98-109); Glucose 88 mg/dL (70-99); Osmolality,Calculated 288 (280-300); Potassium 4.5 mEq/L (3.5-4.5); Sodium 138 mEq/L (136-145); eGFR For African Americans > 60 (> 60); eGFR For Non-African Americans 57 (> 60)
[2016-11-24 06:56] VITALS: BP 129/84
[2016-11-24] MEDS: *HR* Ticagrelor 90 MG TABLET PO SCH (07:53)
[2016-11-24] MEDS: Acetaminophen 325 MG TABLET PO PRN (07:53)
[2016-11-24] MEDS ORDERED: Aspirin 81 MG TAB.CHEW PO SCH (09:00)
--- NOTE | 2016-11-24 09:47 | Cardiology Progress Note ---
Date of Encounter: 11/24/16 Time of Encounter: 09:00 Assessment and Plan (1) NSTEMI (non-ST elevated myocardial infarction) Current Visit: Yes Status: Acute Per cardiology: -Patient with no known cardiac history. -Admitted after being awakened by left sided chest pain and headache. CP lessened in ER by nitroglycerin. -Intial troponin negative, subsequent troponins 0.13, 0.37. Cardiac rehab consult order placed. -[facility] 11/23/16 with preliminary report reviewed with 20% left main, 40% proximal LAD, 99% distal LAD, 40% proximal circumflex, 60% OM1, 85% proximal RCA. 1 drug eluding stent was placed in proximal RCA. Recommendations for medical management for remaining lesions. -Currently chest pain free. -On asa, brilinta, and statin. Education given to patient regarding dual anti- platelet therapy for at least one year un-interrupted. Patient and family state understanding. -Right radial access site without ecchymosis or hematoma. Access site education given to patient and family. Patient and family state understanding. -AVerage HR previous 12 hours noted to be 63. -Echocardiogram 11/23/16 with LVEF 55-60%, mild left ventricular diastolic dysfunction, no significant valvular dysfunction, ascending aorta borderline dilated measuring 4.2cm, all wall segments with normal motion. Patient and family aware of possible borderline dilated aorta. Can consider CT scan in outpateint setting. Patient and family state understanding and agree with plan. -Will start low dose beta max for CAD. Recommend close follow up in outpatient setting. -Cardiology will sign off and will follow up in outpatient setting. Follow up set. (LISS) (2) Chest pain Current Visit: Yes Status: Resolved Per cardiology: -Currently chest pain free. -[facility] with 1 MAURI proximal RCA. -Will continue to monitor in outpatient setting. (LISS) (3) CKD (chronic kidney disease) Current Visit: Yes Status: Chronic Per cardiology: -Patient denies history of CKD. -Upon review of previous labs since 2002, creatinines noted to be 1.2-1.4. -Current creatinine 1.26, at baseline. Creatinine yesterday 1.46. -Management per primary service. -Can consider nephrology consult. (LISS) Qualifiers: Chronic kidney disease stage: stage 3 (moderate) Qualified Code(s): N18.3 - Chronic kidney disease, stage 3 (moderate) (4) Headache Current Visit: Yes Status: Acute Per cardiology: -Admits to excertional headaches for the past 6 months. -CT head negative for age. -Could possibly be anginal equivalent. -Patient states mild headache this morning. -Management per primary service. (LISS) Qualifiers: Headache type: tension-type Headache chronicity pattern: acute headache Intractability: not intractable Qualified Code(s): G44.209 - Tension-type headache, unspecified, not intractable (5) HTN (hypertension) Current Visit: Yes Status: Chronic Per cardiology: -Known history of hypertension. -States was on BB, but was stopped by PCP for bradycardia. States was placed on CCB for hypertenion by PCP. -HYpertensive on admission with BP 175/100. -BPs currently controlled. -Will start low dose beta max, average HR previous 12 hours noted to be 63. (LISS) Qualifiers: Hypertension type: essential hypertension Qualified Code(s): I10 - Essential (primary) hypertension (6) Dyslipidemia Current Visit: Yes Status: Chronic Per cardiology: -Patient reports known history of hyperlipidemia. -Not taking any statins at home. -Cholesterol noted to be 219, LDL 143. -Started on lipitor 80mg po daily. -Will continue to monitor in outpatient setting. (LISS) Discussion w patient/family: The assessment and plan as outlined above was discussed with the patient and/or family members who expressed understanding and agreement. All questions were answered. Thank you for involving us in the care of your patient. Please call with any questions. Patient seen and examined with KATERIN Huddleston Patient discussed and reviewed with . Subjective Principal diagnosis: chest pain/headache Interval history: , was admitted to [facility] with complaints of headache and left sided chest pain. Troponin was noted to be elevated and patient underwent LHC yesterday. Patient one drug eluding stent placed to proximal RCA. Patient is now on dual antiplatelet therapy. Patient denies chest pain. Patient admits to mild headache now. Denies pain/issues with right radial access site. (LISS) Objective Vital Signs, Last 4 Hours Temp Pulse Resp BP Pulse Ox 11/24/16 06:53 97.7 F 64 16 129/84 97 General: Conversant, No Apparent Distress HEENT: Atraumatic, Normocephaly, Mucus Membranes Moist Neck: No JVD, Normal carotid pulses Cardiac: Reg Rate and Rhythm, Normal S1 and S2, No Murmur Lungs: Normal Breath Sounds, No Wheeze, Rales, Rhonchi Neuro: Alert and responsive, No focal deficits noted Abdomen: Soft, Non-Tender Skin: No rashes noted on visualized skin Musculoskeletal: No Chest Wall Tenderness Extremities: No Clubbing, No Cyanosis, No Edema, Normal Pulses Results 11/24/16 04:58 11/24/16 04:58 Lab Results Active Medications Acetaminophen (Tylenol) 650 mg PO Q6HR PRN PRN Reason: Mild Pain Stop: 05/25/17 04:37 Last Admin: 11/24/16 07:53 Dose: 650 mg Aspirin (Aspirin) 81 mg PO DAILY [facility] Stop: 05/26/17 09:01 Last Admin: 11/24/16 07:53 Dose: 81 mg Atorvastatin Calcium (Lipitor) 80 mg PO HS [facility] Stop: 05/25/17 21:01 Last Admin: 11/23/16 20:39 Dose: 80 mg Sodium Chloride (0.9 % Sodium Chloride) 1,000 mls @ 60 mls/hr IVC .[id number] [facility] Stop: 05/25/17 20:16 Last Admin: 11/23/16 20:43 Dose: 60 mls/hr Naloxone HCl (Narcan) 0.4 mg IVP Q2MIN PRN PRN Reason: Opioid Reversal Stop: 05/25/17 03:13 Nitroglycerin (Nitroglycerin) 0.4 mg SL Q5MIN PRN PRN Reason: Chest Pain Stop: 05/25/17 01:06 Last Admin: 11/23/16 01:18 Dose: 0.4 mg Ondansetron HCl (Zofran) 4 mg IVP Q6HR PRN PRN Reason: Nausea And Vomiting Stop: 05/25/17 03:13 Oxycodone/Acetaminophen (Percocet 5/325) 1 each PO Q6HR PRN PRN Reason: Pain Stop: 05/25/17 08:42 Ticagrelor (Brilinta) 90 mg PO BID [facility] Stop: 05/25/17 21:01 Last Admin: 11/24/16 07:53 Dose: 90 mg Laboratory Tests 11/23/16 11/23/16 11/23/16 00:36 00:36 06:13 Hgb Creatinine 1.43 H 1.46 H Troponin I 0.01 Triglycerides 129 Cholesterol 219 H LDL Cholesterol, Calc 143 H HDL Cholesterol 50 11/23/16 11/23/16 11/24/16 06:13 12:05 04:58 Hgb 13.1 Creatinine Troponin I 0.13 H* 0.37 H* Triglycerides Cholesterol LDL Cholesterol, Calc HDL Cholesterol 11/24/16 04:58 Hgb Creatinine 1.26 H Troponin I Triglycerides Cholesterol LDL Cholesterol, Calc HDL Cholesterol - Imaging and Cardiology Chest Xray: report reviewed Echo: report reviewed Cardiac cath: report reviewed - EKG Interpretation EKG results cardiology: other (Telemetry reviewed with average HR 63. PVCs and PACs noted.) Consult Discharge Plan - Plan Referrals: Marlene Arita MD [Partnered Physician] - 12/01/16 1:30 pm
--- NOTE | 2016-11-24 11:31 | Discharge Summary ---
Date of Encounter: 11/24/16 Time of Encounter: 10:00 - Discharge Diagnosis (1) NSTEMI (non-ST elevated myocardial infarction) Priority: Primary Status: Acute (2) Headache Priority: Primary Status: Acute Qualifiers: Headache type: tension-type Headache chronicity pattern: acute headache Intractability: not intractable Qualified Code(s): G44.209 - Tension-type headache, unspecified, not intractable (3) HTN (hypertension) Priority: Secondary Status: Chronic Qualifiers: Hypertension type: essential hypertension Qualified Code(s): I10 - Essential (primary) hypertension (4) Dyslipidemia Priority: Secondary Status: Chronic (5) CKD (chronic kidney disease) Priority: Secondary Status: Chronic Qualifiers: Chronic kidney disease stage: stage 3 (moderate) Qualified Code(s): N18.3 - Chronic kidney disease, stage 3 (moderate) - Discharge Medications Prescriptions: Acetaminophen [Tylenol] 650 mg PO Q6HR PRN #30 tablet PRN Reason: Mild Pain Aspirin 81 mg PO DAILY #30 tab.chew Atorvastatin [Lipitor] 80 mg PO HS #30 tablet Metoprolol [Lopressor] 12.5 mg PO BID #30 tablet Ticagrelor [Brilinta] 90 mg PO BID #60 tablet Home Medications: Gabapentin [Neurontin] 600 mg PO TID PRN 11/23/16 [History] Acetaminophen [Tylenol] 650 mg PO Q6HR PRN #30 tablet 11/24/16 [Rx] Aspirin 81 mg PO DAILY #30 tab.chew 11/24/16 [Rx] Atorvastatin [Lipitor] 80 mg PO HS #30 tablet 11/24/16 [Rx] Metoprolol [Lopressor] 12.5 mg PO BID #30 tablet 11/24/16 [Rx] Ticagrelor [Brilinta] 90 mg PO BID #60 tablet 11/24/16 [Rx] Allergies/Adverse Reactions: Allergies No Known Allergies Allergy (Verified 11/23/16 00:20) Date of admission: 11/24/16 10:06 Primary care physician: Felix Hinds MD Discharging clinician: Masoud Lee Anticipated date of discharge: 11/24/16 - Patient Status Disposition: Home, Self-Care Condition: Good Functional capacity at discharge: independent ambulation Overall status at discharge: patient is back to baseline - Discharge Instructions Follow Up With: Kota Marlow MD [Partnered Physician] - 12/01/16 8:00 am Marlene Arita MD [Partnered Physician] - 12/01/16 1:30 pm - Diet and Activity Activity: increase activity as tolerated Diet: low fat, low cholesterol, low salt diet Interval History: Mr. Mckenzie is a 65 year old male with a history of well controlled HTN/ Dyslipidemia not prescribed any medication comes to the ER with chest pain. He as in his usual state of health until this [place] whilst dozing off he was awoken with chest pain, the pain was located on the left side of the chest, was pressure like in character and dull, constant in timing, non radiating, was 6/ 10 in severity. It had no aggravating or relieving factors but was associated with severe occipital headache ad a feeling of apprehension. His chest pain had no associated shortness of breath, palpitations, nausea or vomiting, lightheadedness, or diaphoresis. His checked his BP at the time of his symptoms and his BP read 168/104, a knight departure from his baseline 135/85mmHg. He came to the ER for further evaluation. Hospital course: Mr. Mckenzie is a 65 year old male admitted for chest pain with elevated troponin, consistent NSTEMI. Cardiology saw patient and did a catheterization and stenting. After treatment, patient is stable, chest pain has resolved. Patient with discharge home today and follow-up with cardiology as outpatient. Patient has a headache on admission, head CT negative, will continue symptomatic treatment. I saw and examined patient today. He is awake alert, oriented 3. Vitals are stable. No chest pain or shortness of breath. Headache has improved. We will discharge patient home, keep DAPT, statin, beta max per cardiology. Patient will follow-up with cardiology as outpatient. - Time Spent with Patient Total time spent providing and/or coordinating discharge services: 40 minutes Greater than 30 minutes - Constitutional Vitals: Temp Pulse Resp BP Pulse Ox 97.7 F 64 16 129/84 97 11/24/16 06:53 11/24/16 06:53 11/24/16 06:53 11/24/16 06:53 11/24/16 06:53 General appearance: Present: mild distress, A&O X 3, answers questions appropriately - Head Head exam: Present: atraumatic, normocephalic - Eye Eye exam: Present: PERRL, conjuntiva pink, sclera anicteric Pupils: Present: PERRL - Neck Neck exam general surgery: Present: supple, trachea midline. Absent: lymphadenopathy - Respiratory Respiratory exam: Present: CTAB. Absent: accessory muscle use, rales, rhonchi, wheezes - Cardiovascular Cardiovascular exam: Present: RRR, +S1, +S2. Absent: diastolic murmur, gallop, rubs, systolic murmur - GI/Abdominal GI/Abdominal exam: Present: normal bowel sounds, soft, no peritoneal signs. Absent: distended, tenderness - Extremities Exam Extremities exam: Present: warm, radial pulses palpable and symetrical. Absent : calf tenderness, cyanotic, pedal edema - Neurological Exam Neurological exam: Present: CN II-XII intact, oriented X3, no focal deficits. Absent: pronater drift, facial droop, speech deficit - Skin Skin exam: Present: dry, intact
--- NOTE | 2016-11-27 09:37 | Invasive Diagnostic Lab ---
Name: Gray Mckenzie Date of Study: 11/23/2016 Date: 1950 Ht: 185.0 cm /72.8 in Medical Record#: [id number] Age: 65 Wt: 103. kg / 227.08 lb Account/Order#: [id number] Gender: Male BSA: 2.27 Order #: [id number] Fluoro Dose: 427 mGy BMI: 30.09 Procedure Physician: Kota Marlow MD, [facility] Referring MD: Felix Hinds MD Referring MD: Procedures Performed: LEFT HEART CATH Stent w/ PTCA Single Major Vessel Indications: Non-Stemi Impressions: There is severe one vessel coronary artery disease. Patient had successful PTCA/Drug-Eluting Stent placement in the proximal RCA. Recommendations: Optimal medical therapy of patient's disease. Aggressive risk factor modification. Procedure Access obtained in the right Radial artery by percutaneous puncture Patient had successful PTCA/Drug-Eluting Stent placement in the proximal RCA. Complications: None Contrast: Isovue 50ml Closure Device: Mechanical Compression Hemodynamics: Pressures Site Systolic/ A Wave Diastolic/ V Wave End Diastolic/ Mean HR AO 104 78 91 63 AO 103 80 92 66 LV 119 8 15 68 AO 133 89 109 61 LV 119 8 15 Coronary Dominance: right Lesion Findings/Interventions * Left Main Coronary Artery There is a 20% stenosis in the LMCA. The lesion has a JOSE A flow of 3. * Left Anterior Descending There is a 40% stenosis in the Proximal LAD. The lesion has a JOSE A flow of 3. There is a mid 50-60% stenosis There is a 99% stenosis in the Distal LAD near apex. The lesion has a JOSE A flow of 3. * Circumflex There is a 30% hazy stenosis in the Proximal Circumflex. The lesion has a JOSE A flow of 3. There is a 60% stenosis in the 1st Marginal. The lesion has a JOSE A flow of 3. * Right Coronary Artery There is a 16 mm long, 85% stenosis in the Proximal RCA. The lesion has a JOSE A flow of 3 and has no thrombus present. An intervention was performed on the Proximal RCA with a final stenosis of 0%. There were no lesion complications. The final JOSE A flow was 3. There is a 15% stenosis in the Right PDA. The lesion has a JOSE A flow of 3. Interventional Device(s) Vessel Segment Type Name Diameter (mm) Length (mm) Proximal RCA Drug Eluting Stent Synergy 4 16 Proximal RCA Balloon Emerge Monorail 3 12 Proximal RCA Balloon NC Emerge 4 12 Updated by Yee Daniels RN on 11/23/2016 3:39:32 PM Kota Marlow MD, FACC electronically signed on 11/27/2016 9:32:41 AM with status of Final
== END 2016-11-24 12:20 | disposition home or self-care (01) | DRG 247 ==
LOC: EMEROO 00:14 → 3BNU 00:14 → SUATTDRO 03:06 → 3BNU 03:20
PROVIDERS: ADMIT Internal Medicine; ATTEND Internal Medicine